=== PATIENT | female | born 1975 | race Caucasian/White ===

== ENCOUNTER 2019-05-03 15:41 | Inpatient (IN) ==
[2019-05-03] MEDS ORDERED: NS 1,000 ML IV ONE (17:38)
[2019-05-03] MEDS ORDERED: TORADOL IV ONE (17:38)
[2019-05-03 17:56] LABS: URINE SOURCE CLEAN CATCH
[2019-05-03 18:09] LABS: BASO# 0.04 X1000 (0.0-0.2); BASO% 0.3 % (0.0-0.8); EOS# 0.39 X1000 (0.0-0.7); EOS% 2.9 % (0.0-10.0); HEMATOCRIT 41.7 % (37.0-47.0); HEMOGLOBIN 13.7 g/dL (12.0-16.0); IMM GRAN# 0.04 X1000 (0.0-0.04); IMM GRAN% 0.3 % (0.0-0.5); LYMPH# 1.99 X1000 (1.2-3.4); MCH 28.8 PG (27-31); MCHC 32.9 g/dL (33-37); MCV 87.6 FL (81-99); MONO# 0.69 X1000 (0.11-0.59); MONO% 5.2 % (1.7-9.3); MPV 11.1 FL (7.4-10.4); NEUT# 10.11 X1000 (1.4-6.5); NEUT% 76.3 % (42.2-75.2); PLT 289 X1000 (130-400); RBC 4.76 XMIL (4.2-5.4); RDW 15.2 % (11.5-14.5); WBC 13.26 X1000 (4.8-10.8)
[2019-05-03 18:14] LABS: BILIRUBIN URINE NEGATIVE (NEGATIVE); BLOOD URINE LARGE (NEGATIVE); COLOR ORANGE; GLUCOSE URINE TRACE mg/dL (NEGATIVE); KETONE URINE NEGATIVE (NEGATIVE); LEUKOCYTES URINE LARGE (NEGATIVE); NITRITE URINE NEGATIVE (NEGATIVE); PROTEIN URINE 200 mg/dL (NEGATIVE); SP GRAVITY URINE 1.017; TURBIDITY URINE TURBID (CLEAR); UROBILINOGEN URINE NORMAL (NORMAL)
[2019-05-03 18:15] LABS: UR EPITHELIAL CELLS <10 /HPF (<10); URINE BACTERIA NEGATIVE /HPF; URINE RBC TNTC /HPF (<10); URINE WBC TNTC /HPF (<10)
[2019-05-03 18:23] LABS: AGAP 12; ALB/GLOB RATIO 1.5; ALKALINE PHOSPHATASE 86 U/L (32-104); BUN 12 mg/dL (8-22); CALCIUM 9.4 mg/dL (8.8-10.2); CHLORIDE 104 mmol/L (98-107); COSMO 287; CREATININE 0.9 mg/dL (0.5-0.9); ESTIMATED GFR > 60; GLUCOSE 133 mg/dL (70-104); GOT 11 U/L (10-30); GPT 6 U/L (10-36); POTASSIUM 3.7 mmol/L (3.5-5.1); SODIUM 143 mmol/L (136-145); TCO2 27 mmol/L (25-35); TOTAL BILIRUBIN 0.22 mg/dL (0.20-1.00); TOTAL PROTEIN 6.7 g/dL (6.3-8.3)
[2019-05-03] MEDS ORDERED: ROCEPHIN 1 GM in NS 50 ML IV ONE (18:47)
[2019-05-03] MEDS ORDERED: DILAUDID IV ONE (18:47)
[2019-05-03] MEDS ORDERED: ZOFRAN IV ONE (18:47)
--- NOTE | 2019-05-03 18:59 | Diag Imaging Result Doc PS360 ---
EXAM: CT ABD/PELVIS W/IV CONT ONLY HISTORY: flank pain TECHNIQUE: CT abdomen and pelvis with intravenous contrast COMPARISON: 05/02/2019 FINDINGS: the gallbladder has been removed. There is fatty infiltration of the liver. Normal spleen, pancreas, and adrenal glands. There are bilateral renal stones. There is a left ureteral stent on the current exam. There are stones adjacent to the proximal stent. 6 mm stone in the lower third of the right ureter with mild hydronephrosis. Normal aorta. No bowel obstruction. Normal appendix. No abscess. Urinary bladder is moderately distended. The uterus has been removed. No pelvic mass. IMPRESSION: 1. Placement of a left ureteral stent 2. Worsening right hydronephrosis This exam was performed using automated exposure control, adjustment of mA or kV according to patient size, and/or use of iterative reconstruction technique. Electronically signed by Clemente Vera 05/03/2019 6:57 PM
--- NOTE | 2019-05-03 19:10 | PROVIDER DOCUMENTATION ---
This chart was entered by Suzi Galicia Scribe, acting as scribe for Phillip Lim MD. HPI-General Adult - General Chief Complaint: Flank Pain Stated Complaint: RETURN/RECHECK Time Seen by Provider: 05/03/19 17:31 Source: patient Allergies/Adverse Reactions: Patient Allergies Allergy/AdvReac Type Severity Reaction Status Date / Time adhesive tape Allergy HIVES Verified 01/31/18 23:15 Home Medications: Home Medication List Medication Instructions Recorded Confirmed Last Taken Type Ipratropium/Albuterol INH 2 puff INH RTQ6H PRN 01/31/18 01/31/18 Unknown History [Combivent Respimat Inhaler] Carbamazepine [Tegretol] 200 mg PO BID #60 tablet 02/01/18 Unknown Rx Paroxetine HCl [Paxil] 20 mg PO DAILY #30 tablet 02/01/18 Unknown Rx Hydrocodone/Acetaminophen [[place] 1 ea PO TID PRN PRN #15 tab 05/02/19 Unknown Rx 10-325 Tablet] Sulfamethoxazole/Trimethoprim 1 ea PO BID #15 tab 05/02/19 Unknown Rx [Bactrim Ds Tablet] - History of Present Illness -Gen Adult Nature of Presenting Problems: Pt is 43/F presenting to ED w/ R flank pain. Pt had stent placed yesterday for known kidney stones on L. Was sent here from Urology to get CT for R side. Pain started around 1:30 today. Location of Pain/Injury: reports: other (R flank) Quality of Pain: reports: aching Severity: reports: moderate Onset/Duration: reports: 4-6 hours ago Timing: reports: still present Context/Activities at Onset: reports: none Modifying Factors: improves with: nothing Associated Symptoms: denies: diarrhea, nausea, vomiting Similar Symptoms Previously?: Yes Recently seen or treated by another doctor?: Yes Review of Systems - Adult - REVIEW OF SYSTEMS - ADULT Constitutional: denies: chills, fever Eyes: reports: no symptoms reported Ears, Nose, Mouth & Throat: reports: no symptoms reported Cardiovascular: reports: no symptoms reported Gastrointestinal: reports: no symptoms reported. denies: abdominal pain, diarrh ea, nausea, vomiting Genitourinary: reports: flank pain. denies: dysuria, urinary retention, urgency Musculoskeletal: reports: no symptoms reported Integumentary: reports: no symptoms reported Neurological: reports: no symptoms reported. denies: dizziness/vertigo, headache/migraines Psychiatric: reports: no symptoms reported Endocrine: reports: no symptoms reported Hematologic/Lymphatic: reports: no symptoms reported Allergic/Immunologic: reports: no symptoms reported All Other Systems: Reviewed and Negative Past History - Adult - PAST MEDICAL HISTORY-ADULT Review of Records: reports: Old Records Reviewed, Nursing Assessment Review, Medications Reviewed, Social history reviewed & non-contributory. Major Childhood Illnesses: reports: denies history Cardiovascular: reports: denies history Respiratory: reports: asthma Gastrointestinal: reports: denies history Obstetrical/Gynecological: reports: ovarian cysts Genitourinary: reports: kidney stones Musculoskeletal: reports: neck/back injury (back only) Neurological: reports: denies history Endocrine/Immune: reports: denies history Other Conditions: reports: denies history - PRIOR SURGERIES/PROCEDURES Surgical/Procedure History: reports: cholecystectomy, , other (ovarian cysts removed, lithotripsy) - IMMUNIZATION STATUS Childhood Immunizations: See Nurse Assessment Flu Vaccine: See Nurse Assessment - FAMILY HISTORY Family History: reviewed, not pertinent - SOCIAL HISTORY Alcohol Use Frequency: never Living Situation: family Physical Exam-General - PHYSICAL EXAM-ADULT Initial Vital Signs Reviewed: Yes - CONSTITUTIONAL General Appearance: appears well, alert, no apparent distress - EYES Eyes: PERRL/EOMI - HEAD, EARS, NOSE, MOUTH & THROAT HENMT: normocephalic/atraumatic, moist mucous membranes, normal ENT inspection, TMs normal, pharynx normal - NECK Neck: non-tender, full range of motion, supple, normal inspection - RESPIRATORY Respiratory: lungs clear - CARDIOVASCULAR Cardiovascular: regular rate, rhythm - GASTROINTESTINAL (ABDOMEN) Abdominal Exam: soft, tenderness (suprapubic tenderness R flank tenderness) - LYMPHATIC Lymphatic: no adenopathy - MUSCULOSKELETAL Back Exam: normal inspection Extremity: normal range of motion, non-tender, normal gait, normal inspection - SKIN Integumentary: normal color, normal turgor, warm/dry - NEUROLOGIC Neurologic: grossly normal - PSYCHIATRIC Psych/Mental Status: normal mood/affect, normal thought content, normal thought process, oriented x 3 Progress - PLAN OF CARE/RESULTS Progress/Plan/Lab Results: Vital Signs - 8 hr 05/03/19 15:49 05/03/19 16:44 Temperature 98.2 F Pulse Rate 99 H Respiratory Rate 20 Blood Pressure 144/90 155/88 O2 Sat by Pulse Oximetry 95 96 Laboratory Results - last 24 hr 05/03/19 16:47 Urine Source CLEAN CATCH Orders Category Date Time Status CT ABD/PELVIS W/IV CONT ONLY [CT] Stat Exams 05/03/19 17:37 Ordered CBC WITH DIFF [HEME] Stat Lab 05/03/19 17:45 Results COMPREHENSIVE METABOLIC PANEL [CHEM] Stat Lab 05/03/19 17:45 Received URINALYSIS W/POSS RFLX CULT [URINALYSIS] Stat Lab 05/03/19 16:47 Results 0.9% Sodium Chloride Inj [Ns] 1,000 ml Med 05/03/19 17:38 Active IV 999 mls/hr Ketorolac [Toradol] Med 05/03/19 17:38 Discontinued 15 mg IV NOW ONE Result Diagrams: 05/03/19 17:45 05/03/19 17:45 - CT/MRI 1 CT Study: Kidneys Impression: Abnormal (FINDINGS: the gallbladder has been removed. There is fatty infiltration of the liver. Normal spleen, pancreas, and adrenal glands. There are bilateral renal stones. There is a left ureteral stent on the current exam. There are stones adjacent to the proximal stent. 6 mm stone in the lower third of the right ureter with mild hydronephrosis. Normal aorta. No bowel obstruction. Normal appendix. No abscess. Urinary bladder is moderately distended. The uterus has been removed. No pelvic mass. IMPRESSION: 1. Placement of a left ureteral stent 2. Worsening right hydronephrosis This exam was performed using automated exposure control, adjustment of mA or kV according to patient size, and/or use of iterative reconstruction technique. Electronically signed by Clemente Vera 05/03/2019 6:57 PM) - CONSULTS/PCP/HOSPITALIST Notification #1 *Consult/PCP/Hospitalist*: Dr. Warner Time Discussed: 18:57 (Admit w/ hospitalist and he will see pt once admitted. ) Consult Disposition: Admit #2 Consult: Zainab rivas Hospitalist Time Discussed: 19:10 Consult Disposition: Will see in ED, Admit - CHANGE OF SHIFT REPORT (ED Provider) 1 Report Given and Care Transferred to:: Dr Love Time of Transfer: 19:00 Items Pending: CT/MRI Results Departure - Departure Date of Disposition Decision: 05/03/19 Time of Disposition Decision: 19:10 DIAGNOSIS: Obstruction of left ureteropelvic junction (UPJ) due to stone, Right ureteral calculus Disposition: ADMITTED INPATIENT 09 Certified Medical Emergency: Emergent Condition: Fair Referrals and Follow-Ups: Rigoberto Monroy [Primary Care Provider] - Discharge Education: Steps to Quit Smoking, [id number] - Critical Care Note This patient required my direct & personal management of CC.: No Attestation - Physician/ CAROLINE Attestation Patient care was provided by Advanced Practice Provider:: No The physician spent face to face time with patient:: Yes Advanced Practice Provider documentation review:: Supervising physician onsite and consulted in the evaluation and care of this patient. The physician did have a face to face encounter with the patient. This chart was documented by the indicated scribe, (Suzi Galicia, Scribe) and accurately reflects the services I performed and decisions made by me, Phillip Lim MD, as attested by the provider's signature.
[2019-05-03] MEDS ORDERED: VENTOLIN HFA INH PRN (20:15)
[2019-05-03] MEDS ORDERED: TYLENOL PO PRN (20:54)
[2019-05-03 20:58] LABS: HEMOGLOBIN A1C 5.5 % (4.8-6.0)
[2019-05-03] MEDS: DILAUDID IV PRN (21:30)
[2019-05-03] MEDS: ZOFRAN IV PRN (21:31)
[2019-05-03] MEDS: KLONOPIN PO SCH (22:29)
[2019-05-03] MEDS: NS 1,000 ML IV SCH (22:32)
[2019-05-03] MEDS: TORADOL IV SCH (23:12)
[2019-05-04] MEDS: DILAUDID IV PRN ×3 (01:28→08:10)
[2019-05-04] MEDS: NS 1,000 ML IV SCH ×2 (02:03→11:44)
--- NOTE | 2019-05-04 03:05 | HISTORY AND PHYSICAL ---
CHIEF COMPLAINT: Kidney failure. HISTORY OF PRESENT ILLNESS: Ms. Duran is a 43-year-old female who comes in after having a stent placed for a kidney stone on the left side. I believe the stone was [address] was done tonight that showed a 6 mm stone on the right with mild hydronephrosis. Dr. Warner was spoken to and wanted the patient admitted for evaluation. She will be placed on the medical floor for further evaluation and treatment. PAST MEDICAL HISTORY: Hypertension, COPD, asthma, kidney stones, bipolar disorder, diabetes mellitus type 2. PREVIOUS SURGICAL HISTORY: Renal stent, , left knee surgery, ovarian cyst removal, 4 basket removals of kidney stones and hysterectomy. ALLERGIES: Adhesive tape. CURRENT MEDICATIONS: Albuterol inhaler p.r.n., amlodipine 10 mg p.o. daily, Celexa 20 mg p.o. daily, Klonopin 1 mg p.o. b.i.d., [place] 7.5 one p.o. q.4-6 hours, Vyvanse 1 tablet p.o. daily, metformin 500 mg one p.o. t.i.d., Singulair 10 mg p.o. daily, Symbicort 160/4.5 one inhalation daily, hydrochlorothiazide 25 mg p.o. daily, Zofran 4 mg p.r.n. SOCIAL HISTORY: One pack per day smoker for many years. No alcohol. She did take meth, but stopped in 1994. FAMILY HISTORY: Mother has hypertension and coronary artery disease. Dad from a myocardial infarction at age 65. Brother has hypertension. REVIEW OF SYSTEMS: A 14-point review of systems conducted with the patient. She was positive for right-sided abdominal pain which was worse than the left side. Right-sided flank and back pain. Nausea and chills. The 14-point review was conducted and all other systems were negative. PHYSICAL EXAMINATION: VITAL SIGNS: Temperature 98.2, pulse 99, respirations 20, blood pressure 144/90, oxygen saturation 95% on room air. GENERAL: An obese 43-year-old female lying in the ER stretcher, alert and oriented x3, answers all questions appropriately. HEENT: Head is atraumatic, normocephalic. Pupils are equal, round and reactive to light. Extraocular eye movements intact. Sclerae are anicteric. Conjunctivae are pink. Oral mucosa is moist. NECK: Supple. No JVD, no thyromegaly. Trachea is midline. No cervical lymphadenopathy. CARDIAC: S1 and S2 appreciated. No murmurs, gallops or rubs. LUNGS: Decreased bilaterally. Mild expiratory wheeze, otherwise clear to auscultation. No crepitations or rhonchi. Symmetrical rise and fall with respirations. ABDOMEN: Diffusely tender, right greater than left. Also right flank pain noted. Bowel sounds present in all 4 quadrants, hypoactive. No pulsatile mass. No organomegaly. EXTREMITIES: No clubbing, cyanosis, or edema; 2+ pedal pulses bilaterally. GENITOURINARY: No bladder distention. Patient voids. Otherwise deferred. NEUROLOGICAL: Alert and oriented x3. No focal motor deficits. Otherwise nonfocal examination. DIAGNOSTIC DATA: CT of the abdomen and pelvis showed a 6 mm kidney stone on the right side, a left ureteral stent with a proximal stone. LABORATORY DATA: WBC 13.26. Glucose 133. Other laboratory data within normal limits. Urine: Too numerous to count WBCs, leukocyte esterase positive, large amounts of hematuria with too numerous to count RBCs. ASSESSMENT AND PLAN: 1. Right kidney stone 6 mm in size. Will consult Dr. Warner, as he plans to do lithotripsy. He placed a ureteral stent on the left last night. Will give scheduled Tylenol for the next 24 hours. Also will give Toradol 15 mg x3 doses q.6 hours scheduled. Dilaudid 0.5 mg q.3 hours as needed for pain. 2. Urinary tract infection secondary to #1. She was given Rocephin in the emergency room. This will be continued. 3. Hypertension. Continue Norvasc. 4. Chronic obstructive pulmonary disease and asthma. Continue Singulair, Symbicort and bronchodilators. Further recommendations per patient's clinical course. Dictated by RABIA Stroud for Gabriela Weiss MD cc: RABIA Stroud MD Sergey S. Ananyev, MD I personally examined this pt at bedside and agree that due to kidney stone size >5mm surgical intervention is the way to go. Norvasc may theoretically help with passage and consideration to switch to alpha sandra at discharge may also be useful. For now, treat symptomatically pending urological intervention. MTDD
[2019-05-04] MEDS: TORADOL IV SCH ×2 (04:56→11:45)
[2019-05-04 06:56] LABS: CALCIUM 8.8 mg/dL (8.8-10.2); CREATININE 1.4 mg/dL (0.5-0.9); POTASSIUM 3.9 mmol/L (3.5-5.1)
[2019-05-04] MEDS ORDERED: SYMBICORT 160/4.5 MICROGM INHALER INH SCH (07:30)
[2019-05-04] MEDS: ZOFRAN IV PRN (08:10)
[2019-05-04] MEDS: KLONOPIN PO SCH (08:59)
[2019-05-04] MEDS ORDERED: MIRALAX PO SCH (09:00)
[2019-05-04] MEDS ORDERED: HYDROCHLOROTHIAZIDE PO SCH (09:00)
[2019-05-04] MEDS ORDERED: CELEXA PO SCH (09:00)
[2019-05-04] MEDS ORDERED: NORVASC PO SCH (09:00)
[2019-05-04] MEDS ORDERED: DIPRIVAN 1% ONE (09:53)
[2019-05-04] MEDS ORDERED: XYLOCAINE-MPF 2% ONE (09:54)
[2019-05-04] MEDS ORDERED: QUELICIN (DOSE) ONE (09:59)
[2019-05-04] MEDS ORDERED: PEPCID ONE (10:32)
[2019-05-04] MEDS ORDERED: REGLAN ONE (10:32)
[2019-05-04] MEDS ORDERED: VERSED ONE (10:33)
[2019-05-04] MEDS ORDERED: FENTANYL ONE (11:08)
[2019-05-04] MEDS ORDERED: ZOFRAN ONE (11:26)
[2019-05-04] MEDS ORDERED: DECADRON ONE (11:26)
[2019-05-04] MEDS ORDERED: ROBINUL ONE (11:29)
[2019-05-04] MEDS ORDERED: NEOSTIGMINE ONE (11:30)
--- NOTE | 2019-05-04 12:17 | Diag Imaging Result Doc PS360 ---
EXAM: FLUROSCOPY CYSTO HISTORY: JOCELYN. STONES, LASER, JOCELYN. STENTS TECHNIQUE: 14 films submitted COMPARISON: None. FINDINGS: The initial film shows a left-sided ureteral stent and contrast in a dilated right renal pelvis with dilated and blunted calyces. Subsequent films show the placement of a wire within the right ureter. A right ureteral stent was placed. Exchange of the left ureteral stent. IMPRESSION: New right ureteral stent placed with a left ureteral stent exchange. Electronically signed by Clemente Vera 05/04/2019 12:15 PM
[2019-05-04 12:45] VITALS: BP 134/68
[2019-05-04] MEDS ORDERED: NORCO-7.5 PO PRN (12:51)
[2019-05-04] MEDS ORDERED: DITROPAN PO PRN (12:51)
[2019-05-04] MEDS ORDERED: ROCEPHIN 1 GM in NS 50 ML IV SCH (18:00)
--- NOTE | 2019-05-06 03:07 | DISCHARGE SUMMARY ---
ADMISSION DATE: 05/03/2019 DISCHARGE DATE: 05/04/2019 DIAGNOSES: 1. Distal 6 mm obstructing stone distal 3rd ureter status post double-J stent placement. 2. Left double-J stent exchange. 3. Presumed urinary tract infection with urine culture ultimately returning no growth. 4. Hypertension. 5. Chronic obstructive pulmonary disease. CONSULTS: Dr. Mihai Warner. PROCEDURES: 1. 05/04/2019, left ureteral stent exchange, place placement of right double-J stent. 2. Cystoscopy with bilateral ureteroscopy, bilateral laser lithotripsy. HOSPITAL COURSE: Ms Duran presented to the emergency room after having found to have an obstructing 6 mm stone in her distal right ureter. She was approximately 24 hours postop, left JJ stent prior to this episode. She was ultimately taken to surgery on the for cystoscopy, bilateral ureteroscopy, bilateral holmium laser lithotripsy. Bilateral double-J stents were placed with the left being exchanged. She did tolerate this well and thankfully is ready for discharge. Urine cultures were obtained on the and , both revealed no growth. DISCHARGE VITAL SIGNS: Blood pressure is 134/68 with heart rate of 84, respirations are 20, temperature 98.4 degrees oral with O2 saturations being 94%-95%. DISCHARGE MEDICATIONS: 1. Albuterol inhaler 1 puff p.r.n. wheezing. 2. Norvasc 10 mg p.o. daily. 3. Citalopram 20 mg p.o. daily. 4. Klonopin 1 mg p.o. b.i.d. 5. Hydrochlorothiazide 25 mg p.o. daily. 6. Metformin 500 p.o. t.i.d. 7. [place] 7.5/325 one q.4-6 hours p.r.n. 8. Symbicort 160/4.5 daily. 9. Vyvanse 30 mg p.o. daily. 10. Zofran 4 mg ODT 1 q.4-6 hours p.r.n. nausea. 11. Bactrim DS 1 p.o. b.i.d. for 6 days. 12. Oxybutynin 5 mg p.o. t.i.d. 13. Tylenol 650 p.o. q.6 hours p.r.n. FOLLOW-UP: With Dr. Mihai Warner on 06/01/2019 at 1 o'clock p.m. She was instructed to call to be seen sooner or return to the ER for any syncope, dizziness, chest pain, palpitations, shortness of breath, cough, fever, chills, temperature greater than 100, any nausea, vomiting, diarrhea, constipation, black or bloody vomitus or stools, any recurrence of flank pain, any gross hematuria, any dysuria, any change in urinary stream, urinary patterns or dislodgement of her stent or for any questions or concerns that she may have. She is being discharged home in stable condition with family members. TIME SPENT: This is a greater than 30 minute discharge. Dictated by RABIA Early for Migel Farooq MD cc: RABIA Early
--- NOTE | 2019-05-08 18:19 | OPERATIVE NOTE ---
PROCEDURE DATE: 05/04/2019 SURGEON: Mihai Warner MD PREOPERATIVE DIAGNOSIS: Right ureteral stone, hydronephrosis, flank pain, left ureteral stone, left ureteral stent. POSTOPERATIVE DIAGNOSIS: Right ureteral stone, hydronephrosis, flank pain, left ureteral stone, left ureteral stent. PROCEDURE: 1. Cystoscopy. 2. Bilateral ureteroscopy with laser lithotripsy. 3. Stone basket extraction. 4. Placed placement of 6-[place], 24 cm ureteral stents. INDICATIONS: A 43-year-old female who was seen by me in the emergency room on 05/02/2019 when she had a 9 mm left ureteral stone as well as a smaller right ureteral stone. She denies any right flank pain and complained of left flank pain only. There was no right hydroureteronephrosis. She underwent cystoscopy with left ureteral stent placement on 05/02/2019 with a plan for left extracorporeal shockwave lithotripsy and stent removal and subsequent observation of the right ureteral stone. After being discharged for her left-sided procedure she re-presented to the emergency room the next day with onset of severe right flank pain. She underwent repeat imaging which now revealed no new stones on the right side but significant worsened of hydroureteronephrosis. She was admitted secondary to pain. She was counseled on bilateral ureteroscopy to address her right ureteral stone as well as remove the left ureteral stent and addressed the 9 mm left ureteral stone. Of note, she also has bilateral renal stones that are smaller. FINDINGS: Right ureteral stone was fairly obstructing. It was sent off for analysis. Successful lithotripsy of both right ureteral stone and proximal left ureteral stone. Placement of bilateral ureteral stents at the conclusion of the case. DESCRIPTION OF PROCEDURE: After obtaining informed consent, the patient was brought to the operating room. Perioperative antibiotics and anesthesia were administered. She was placed in lithotomy placed lithotomy position, prepped and draped in sterile fashion. A 21-[place] rigid cystoscope was used to gain access to the bladder, which was then examined systematic fashion. She had no evidence of mucosal lesions, excessive trabeculations, or diverticula noted. We turned our attention to the right ureteral orifice which was cannulated with PTFE wire. It was advanced to level the right renal pelvis. The rigid ureteroscope was advanced alongside of the wire to the level of mid ureter at which point a stone was seen. I was able to use a Zero Nitinol basket to secure it behind the stone. We then used 365 micron Holmium laser fiber to break the stone up into small fragments. Those were evacuated and sent off for analysis. Repeat ureteroscopy to the level right ureteropelvic junction revealed no evidence of remaining sizable fragments and no evidence of ureteral injury. Once that was done, we removed the ureteroscope and turned attention left ureteral orifice. There was a stent emanating from it. It was secured with the graspers and retrieved. We then introduced a PTFE wire into the left ureteral orifice and advanced to the level of the left renal pelvis. The stone was easily seen on fluoroscopy, but was still at the level of proximal ureter. Following that, rigid ureteroscope was advanced along the wire until the proximal ureter and the stone was seen. We used 0 Nitinol basket to secure the stone. Again 365 micron Holmium laser fiber was used to break the stone up into small fragments. Those pieces were evacuated. Repeat ureteroscopy to the level of left renal pelvis revealed no evidence of ureteral injury and no sizable stone fragments remaining. We then slowly retrieved the ureteroscope. Given her significant mucosal edema bilaterally we elected to place ureteral stents. We 1st placed a 6-[place], 24 cm right ureteral stent over the wire via the cystoscope with the proximal coil position confirmed fluoroscopically distal coil directly visualized. The string was left attached to the stent. We then placed left ureteral stent over the wire via the cystoscope with the proximal coil position confirmed fluoroscopically and distal coil directly visualized. The string was left attached to the stent. The bladder was emptied, cystoscope was removed, both the stent strings were tied together. She was extubated taken to PACU for further recovery. ESTIMATED BLOOD LOSS: 0 mL.Specimens: Left ureteral stone. Right ureteral stone. The fragments were sent off. DRAINS: Six-[place] 24 cm stents bilaterally. DISPOSITION: To PACU and subsequently floor for observation from the urologic standpoint. She would be clear for discharge but I will defer that to hospitalist colleagues who graciously admitted her for pain control. I have discussed with the patient preoperatively and I will see her in 4 weeks to discuss stone analysis. cc: Mihai Warner MD
--- NOTE | 2019-05-08 20:32 | CONSULTATION ---
DATE OF CONSULTATION: 05/04/2019 CONSULTING PHYSICIAN: Consultation for right ureteral stone, flank pain. HISTORY OF PRESENT ILLNESS: A 43-year-old female with history of urolithiasis who was seen by me on 05/02/2019 with 9 mm left ureteral stone. She underwent cystoscopy with left ureteral stent placement on 05/02/2019. She was discharged home after that. At the time of initial evaluation, she had a right-sided ureteral stone without hydronephrosis or pain. After returning home, she reports developing right-sided pain. She presented to the emergency room where repeat CT scan revealed now new associated right hydroureteronephrosis. She continues to have significant pain. It is sharp, it is radiating to her left lower quadrant. She reports associated nauseated. The pain is severe. Nothing makes it better. Nothing makes it worse. It has been intermittent. PAST MEDICAL HISTORY: Depression, reactive airway disease, hypertension, urolithiasis. PAST SURGICAL HISTORY: Ureteroscopy, laser lithotripsy. Cystoscopy with left ureteral stent placement. ALLERGIES: Adhesive tape. CURRENT MEDICATIONS: Tegretol, Paxil, Combivent. SOCIAL HISTORY: Smokes. Denies alcohol or illicit drug use. FAMILY HISTORY: Negative for malignancies. REVIEW OF SYSTEMS: Reviewed 12 systems negative with exception to the HPI. PHYSICAL EXAMINATION: Vital Signs: T 97.5, P 57, BP 155/67. General: No acute distress. HEENT: Normocephalic, atraumatic. Cardiovascular: Regular rhythm. Pulmonary: Bilateral breath sounds. Abdomen: Protuberant, nontender to palpation. Back: Mild right CVA tenderness. Genitourinary: Bladder is nontender to palpation. Dermatologic: No obvious skin rashes. Neurologic: Alert and oriented x 3. Psychiatric: Appropriate mood and affect. Extremities: No clubbing, cyanosis or edema noted. PERTINENT LABS: White cell count 13,000, platelet count is 289,000, creatinine 0.9. Urinalysis positive for white cells and red cells. PERTINENT IMAGES: CT abdomen and pelvis on 05/03/2019 revealing a left ureteral stent in good position, bilateral renal stones and a 6 mm right distal ureteral stone with mild hydroureteronephrosis. ASSESSMENT AND PLAN: A 43-year-old female who just recently had a procedure for her left side with stent secondary to a large proximal ureteral stone. She now has a right distal ureteral stone with symptoms. She was counselled on cystoscopy with bilateral ureteroscopy, laser lithotripsy, stone basket extraction and placement of stents. The risks of the procedure including, but not limited to bleeding, infection, injury to the bladder, injury to adjacent structures, inability to remove all the stones in the ureters and need for additional interventions were explained. She voiced understanding and wants to proceed. PLAN: 1. Continue n.p.o. for now. 2. To operating room later today for cystoscopy, bilateral ureteroscopy, bilateral laser lithotripsy, bilateral stone basket extraction, bilateral placement of ureteral stents. Thank you for the consultation. cc: Mihai Warner MD
== END 2019-05-04 17:03 | disposition home or self-care (01) | DRG 660 ==
LOC: ED 15:41 → SUATTDRO 21:19 → 4N 21:19
PROVIDERS: ATTEND Internal Medicine
CPT/HCPCS: 74177; 76000; 80048; 80053; 81001; 82360; 82948; 83036; 84443; 85025; 87088; 88300; 94640; 94761; A9270; J0330; J0696; J1100; J1170; J1885; J2250; J2405; J2765; J3010; J7030; Q9967; S0028; XXXXX